=== PATIENT | male | born 1990 | race Caucasian/White ===

== ENCOUNTER 2025-01-24 14:32 | Emergency (ER) | payer OTHER, SELFPAY ==
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
--- NOTE | ~2025-01-24 | CT_ITS ---
EXAMINATION: CT brain & sinus wo con DATE: 01/24/2025 14:54 INDICATION: headache . TECHNIQUE: Computed tomography (CT) of the head and sinuses was performed without intravenous contras t. The mA was adjusted according to patient size. Iterative reconstruction technique was employed. Th e dose-length product was 983.67 mGy-cm. COMPARISON: None. FINDINGS: BRAIN: Multifocal likely extra-axial and parenchymal hyperdensities over the right temporal lobe, ranging in size between 4-8 mm. 4 mm likely parenchymal hyperdensity over the left posterior inferior frontal l obe. No hydrocephalus, mass, or herniation. No acute ischemic infarct. Unremarkable dural venous sinus attenuation. No acute osseous abnormality. SINUSES: There is normal development of the paranasal sinuses. Air-fluid level in the left maxillary sinus. Pa rtial opacification of the left mastoid air cells, without osseous erosion. The bilateral middle ear structures appear normal. The frontal, ethmoid, and maxillary sinuses are clear. The bilateral ostiom eatal complexes are patent. Mild leftward bowing and small osseous spurs off the nasal septum. Acute versus chronic nondisplaced maxillary spine fracture. Subcutaneous gas in the left parapharyngeal spa ce, extending superiorly along the anterior left temporal bone and adjacent to the external auditory meatus. Left palatine tonsillar enlargement. Dental caries and periodontal disease involving a left p osterior mandibular molar. IMPRESSION: Small volume right temporal extra-axial hemorrhage and intraparenchymal contusions. Small left marketing automation manager ior inferior frontal parenchymal contusion. Subcutaneous gas in the left neck, predominantly within the parapharyngeal space, incompletely evalua donta, recommend CT soft tissue neck with contrast. Left palatine tonsillar enlargement. Air-fluid level in the left sphenoid sinus, may represent acute sinusitis versus mucosal hemorrhage i f there in the setting of trauma. Left mastoid effusion without obvious osseous erosion or osseous fracture. Left mandibular molar dental caries and periodontal disease. Acute versus chronic maxillary spine fracture. Results reported telephonically to Dr. Bob by Dr. Gandhi at 3:23 PM on 01/24/2025. Reviewed, dictated and finalized at location K. IMPRESSION: Small volume right temporal extra-axial hemorrhage and intraparenchymal contusi ons. Small left posterior inferior frontal parenchymal contusion. Subcutaneous gas in the left neck, predominantly within the parapharyngeal spac e, incompletely evaluated, recommend CT soft tissue neck with contrast. Left palatine tonsillar enlargement. Air-fluid level in the left sphenoid sinus, may represent acute sinusitis versu s mucosal hemorrhage if there in the setting of trauma. Left mastoid effusion without obvious osseous erosion or osseous fracture. Left mandibular molar dental caries and periodontal disease. Acute versus chronic maxillary spine fracture. Results reported telephonically to Dr. Bob by Dr. Gandhi at 3:23 PM on 01/24.
[2025-01-24 14:57] VITALS: BP 144/92; PULSE 87; RESP 18; O2SAT 99
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
[2025-01-24 15:32] VITALS: BP 138/92; PULSE 99; RESP 16; O2SAT 98
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
[2025-01-24 15:48] LABS: Basophils Percent Auto 0.3 % (0.2-1.2); Eosinophils Absolute Auto 0.1 K/mm3 (0-0.3); Eosinophils Percent Auto 0.4 % (0-4.4); Hematocrit 43.3 % (42.0-52.0); Hemoglobin 14.3 g/dL (14.0-18.0); Immature Granulocyte Absolute 0.05 K/mm3 (0.00-0.031); Immature Granulocyte Percent A 0.4 % (0-0.5); Lymphocytes Absolute Auto 0.75 K/mm3 (0.9-3.2); Mean Corpuscular Hemoglobin 30.4 pg (26-34); Mean Corpuscular Volume 91.9 fl (80-100); Mean Platelet Volume 9.9 fl (7.4-10.4); Monocytes Absolute Auto 0.7 K/mm3 (0.1-0.6); Monocytes Percent Auto 5.5 % (2.6-8.5); Neutrophils Percent Auto 87.4 % (45.5-73.1); Platelet Count Result 178 k/mm3 (150-375); Red Blood Count 4.71 M/mm3 (4.6-6.20); Red Cell Distribution Width 12.5 % (11.5-14.5); White Blood Count 12.5 K/mm3 (4.5-10.0)
[2025-01-24 15:50] LABS: Estimated CRCL calculation 76 ml/min; Estimated Glomerular Filt Rate > 60
[2025-01-24 15:57] LABS: Alanine Aminotransferase 33 U/L (6-50); Alkaline Phosphatase 85 U/L (38-126); Anion Gap 9 mmol/L (4-12); Aspartate Amino Transferase 37 U/L (17-59); Bilirubin,Total 0.7 mg/dL (0.2-1.3); Blood Urea Nitrogen 17 mg/dL (9-20); Calcium 9.3 mg/dL (8.4-10.2); Carbon Dioxide 29 mmol/L (22-30); Chloride 100 mmol/L (98-107); Estimated CRCL calculation 91 ml/min; Estimated Glomerular Filt Rate > 60; Glucose 116 mg/dL (65-110); Sodium 138 mmol/L (137-145)
[2025-01-24 16:01] VITALS: BP 148/94; PULSE 101; RESP 14; O2SAT 99
--- NOTE | 2025-01-24 16:01 | PC.NURSE ---
Patient transported to CT on full monitor by this RN and wire charger. C spine precautions maintained during transfers. Pt aware of plan for transfer. Pt returned to central monitoring, VS as charted. Friend at bedside.
[2025-01-24 16:16] LABS: INR 0.9; Prothrombin Time 12.8 Seconds (11.1-14.7)
[2025-01-24 16:17] LABS: Partial Thromboplastin Time 24.2 Seconds (22.3-36.8)
[2025-01-24] MEDS: MORPHINE SULFATE (*CRX) 4 MG/ML INJ IV PUSH (16:22)
[2025-01-24 16:26] VITALS: BP 143/83; PULSE 102; RESP 17; O2SAT 100
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
[2025-01-24 16:41] VITALS: BP 133/81; PULSE 98; O2SAT 99
--- OUTSIDE RECORDS SUMMARY | 2025-01-24 16:42 | XMS_ITS | Clinical Summary ---
Author Organization [facility] [address] [facility] Address [address] [place] [address] Care Team Providers Care Fur Trapper Name Role Phone No, Physician Primary Care Provider [phone] Social History Tobacco Use Types Packs/Day Years Used Date Smoking Tobacco: Never Assessed Personal Safety Answer Date Recorded Getting School Help Needed Not on file 12/08 Sex and Gender Information Value Date Recorded Sex Assigned at Not on file Legal Sex Male 4:55 PM CDT Gender Identity Not on file Sexual Orientation Not on file Plan of Treatment Not on file Insurance [facility] Care Teams Fur Trapper Relationship Specialty Start Date End Date No, Physician PCP - General 07/12/21
--- OUTSIDE RECORDS SUMMARY | 2025-01-24 16:42 | XMS_ITS | Referral Summary ---
Author Organization [facility] [address] [facility] Address [address] [place] [address] Care Team Providers Care Hall Monitor Name Role Phone No, Physician Primary Care Provider [phone] Social History Tobacco Use Types Packs/Day Years Used Date Smoking Tobacco: Never Assessed Personal Safety Answer Date Recorded Getting School Help Needed Not on file 12/08 Sex and Gender Information Value Date Recorded Sex Assigned at Not on file Legal Sex Male 4:55 PM CDT Gender Identity Not on file Sexual Orientation Not on file Plan of Treatment Not on file Insurance [facility] Care Teams Hall Monitor Relationship Specialty Start Date End Date No, Physician PCP - General 07/12/21
== END 2025-01-24 16:57 | disposition short-term general hospital (02) ==
LOC: ANHED 16:13
PROVIDERS: Emergency Provider Emergency Medicine
DX: H92.23 Otorrhagia, bilateral (principal)
CPT/HCPCS: 36415; 70450; 70486; 70491; 71260; 72125; 74177; 80053; 85025; 85610; 85730; 96374; 99291; J2270; L0140; Q9967